=== PATIENT | female | born 1980 | race Two or more races ===

== ENCOUNTER 2018-08-11 10:27 | Emergency (ER) | payer SELFPAY ==
[2018-08-11] MEDS ORDERED: SODIUM CHLORIDE 0.9% 1000 ML INFUS.BAG IV ONE (11:47)
--- NOTE | 2018-08-11 11:55 | PDOC ---
History of Present Illness - General Chief Complaint: ,Possible Stated Complaint: , NAUSEA History Source: Patient Exam Limitations: No Limitations - History of Present Illness Initial Comments: 08/11/18 11:49 38 yo F currently positive test, about 4 - 6 weeks by LMP here with c/o mild lower abdominal cramping, rlq pain. pt denies vaginal bleeding or spotting. no urinary complaints. no h/o ectopic. pain mild. 08/11/18 12:10 Past History - Past Medical History Allergies/Adverse Reactions: Allergies Allergy/AdvReac Type Severity Reaction Status Date / Time No Known Allergies Allergy Verified 08/11/18 12:13 Home Medications: Ambulatory Orders Nitrofurantoin Monohyd/M-Cryst [Macrobid -] 100 mg PO BID #14 capsule 08/11/18 Ondansetron [Ondansetron Odt] 8 mg PO TID PRN #15 tab.rapdis MDD 3 08/11/18 Review of Systems - Review of Systems Constitutional: No: Chills, Diaphoresis, Fever HEENTM: No: Eye Pain ED Treatment Course - LABORATORY CBC & Chemistry Diagram: 08/11/18 11:43 08/11/18 11:43 - RADIOLOGY Radiology Studies Ordered: Category Date Time Status TRANSVAGINAL US PREG [US] Stat Ultrasound 08/11/18 11:27 Ordered Medical Decision Making - Medical Decision Making 08/11/18 12:46 38 yo F with mild rlq cramping and positive test. differentia ovarian cyst, , ecoptic, pains of plan tvus labs [facility] [place]. blood type. ua. pt with 6 wk live IUP, FHR 117, ua with uti will treat with macrobid. given referral for dr jacobson, recommend vitamins. zofran for nausea. *DC/Admit/Observation/Transfer Diagnosis at time of Disposition: , UTI in - Discharge Dispostion Disposition: HOME Condition at time of disposition: Improved - Prescriptions Prescriptions: Nitrofurantoin Monohyd/M-Cryst [Macrobid -] 100 mg PO BID #14 capsule Ondansetron [Ondansetron Odt] 8 mg PO TID PRN #15 tab.rapdis MDD 3 PRN Reason: Nausea And/Or Vomiting - Referrals Referrals: Kyrie Jacobson MD [Staff Physician] - - Patient Instructions Printed Discharge Instructions: Managing Symptoms of , Urinary Tract Infection Additional Instructions: you can take zofran only as needed for nausea every 8 hours. you should start taking a vitamin daily. you should also follow upwtih a financial services rep. you can call dr coronado see referral information for phone number. return for bleeding worsening pain or any concerns .you ultrasound today shows a live intrauterine at weeks and 2 days. your urine shows you have a mild urinary tract infection. you should take macrobid antiobiotics 100 mg twice daily x 7 days. avoid alcohol while , and you should only take tylenol 500 mg every 6 hours as needed for pain. - Post Discharge Activity
[2018-08-11 12:02] LABS: BASO % 0.2 % (0-2.0); EOS % 0.5 % (0-4.5); HEMATOCRIT 45.1 % (32.4-45.2); HEMOGLOBIN 14.6 GM/dl (10.7-15.3); LYMPH % 19.7 % (8-40); MCH 29.9 pg (25.7-33.7); MCHC 32.5 g/dl (32.0-36.0); MEAN CELL VOLUME 91.9 fl (80-96); MEAN PLT VOLUME 8.6 fl (7.5-11.1); MONO % 5.9 % (3.8-10.2); NEUT % 73.7 % (42.8-82.8); PLATELET COUNT 250 K/MM3 (134-434); RBC 4.91 M/mm3 (3.60-5.2); RDW 12.4 % (11.6-15.6); WHITE BLOOD COUNT 8.5 K/mm3 (4.0-10.8)
[2018-08-11 12:08] LABS: ALBUMIN 4.3 g/dl (3.4-5.0); BILIRUBIN,TOTAL 1.1 mg/dl (0.2-1); CALCIUM 10.5 mg/dl (8.5-10); CREATININE 0.7 mg/dl (0.55-1.3); POTASSIUM 3.9 mmol/L (3.5-5.1); TOT PROT 7.6 g/dl (6.4-8.2)
[2018-08-11 12:13] VITALS: BP 100/66; PULSE 65; TEMP 98.4; BMI 26.4
[2018-08-11] MEDS ORDERED: ONDANSETRON 4 MG/2 ML VIAL ONE (12:21)
[2018-08-11] MEDS ORDERED: ONDANSETRON 4 MG/2 ML VIAL IVPUSH ONE (12:29)
[2018-08-11 12:39] LABS: EPITHELIAL CELLS FEW /hpf
== END 2018-08-11 13:17 | disposition home or self-care (01) ==
LOC: FER 10:27
PROC: 3E033GC Introduction of Other Therapeutic Substance into Peripheral Vein, Percutaneous Approach (ICD-10-PCS; principal; 2018-08-11)
PROC: 3E0337Z Introduction of Electrolytic and Water Balance Substance into Peripheral Vein, Percutaneous Approach (ICD-10-PCS; 2018-08-11)
DX: O26.891 Other specified pregnancy related conditions, first trimester (principal); Z3A.01 Less than 8 weeks gestation of pregnancy; N39.0 Urinary tract infection, site not specified
CPT/HCPCS: 36415; 76817-TC; 80053; 81003; 81015; 84702; 85025; 86850; 86900; 86901; 99283-25; J7030